=== PATIENT | male | born 1995 | race African-American/Black ===

== ENCOUNTER 2024-05-17 00:58 | Emergency (ER) | payer OTHER ==
[2024-05-17 01:21] VITALS: BP 132/67; PULSE 78; RESP 18; TEMP 98; BMI 22.8
[2024-05-17] MEDS ORDERED: ACETAMINOPHEN 325 MG TABLET (FP) ONE (02:25)
[2024-05-17] MEDS: ACETAMINOPHEN 325 MG TABLET (FP) PO ONE (02:30)
[2024-05-17 02:37] LABS: BASO % 0.7 % (0-2.0); EOS % 1.5 % (0-4.5); HEMATOCRIT 38.6 % (35.4-49); HEMOGLOBIN 12.7 GM/dL (11.7-16.9); LYMPH % 46.8 % (8-40); MCH 31.4 pg (25.7-33.7); MCHC 32.9 g/dl (32.0-35.9); MEAN CELL VOLUME 95.4 fl (80-96); MONO % 6.8 % (3.8-10.2); NEUT % 44.2 % (42.8-82.8); PLATELET COUNT 221 10^3/uL (134-434); RBC 4.05 M/mm3 (4.00-5.60); RDW 13.5 % (11.9-15.9); WHITE BLOOD COUNT 5.2 K/mm3 (4.0-10.0)
[2024-05-17 03:08] LABS: POTASSIUM 3.9 mmol/L (3.5-5.1)
[2024-05-17 03:10] LABS: ALBUMIN 3.6 g/dl (3.4-5.0); CALCIUM 9.1 mg/dL (8.5-10.1)
[2024-05-17 03:11] LABS: BLOOD UREA NITROGEN 7.4 mg/dL (7-18)
[2024-05-17 03:15] LABS: BILIRUBIN,TOTAL 0.3 mg/dL (0.2-1); TOT PROT 6.7 g/dl (6.4-8.2)
[2024-05-17] MEDS ORDERED: LIDOCAINE HCL 1%, 10 MG/ML (20ML VIAL) ONE (04:14)
[2024-05-17] MEDS: LIDOCAINE HCL 1%, 10 MG/ML (50 mL VIAL) SQ ONE (05:26)
[2024-05-17 06:13] LABS: PH,URINE 6.5 (5.0-8.0); URINE APPEARANCE CLEAR; URINE BILIRUBIN NEGATIVE (NEGATIVE); URINE COLOR YELLOW; URINE GLUCOSE (UA) NEGATIVE (NEGATIVE); URINE KETONE TRACE (NEGATIVE); URINE LEUK ESTERASE NEGATIVE (NEGATIVE); URINE NITRITE NEGATIVE (NEGATIVE); URINE PROTEIN NEGATIVE (NEGATIVE)
[2024-05-17 06:19] LABS: COCAINE, UR NEGATIVE (NEGATIVE); URINE AMPHETAMINES NEGATIVE (NEGATIVE); URINE BARBITURATES NEGATIVE (NEGATIVE); URINE BENZODIAZEPINES NEGATIVE (NEGATIVE)
[2024-05-17 06:20] LABS: METHADONE, UR NEGATIVE (NEGATIVE); OPIATES, URI NEGATIVE (NEGATIVE); PHENCYCLIDINE,URINE NEGATIVE (NEGATIVE)
[2024-05-17] MEDS ORDERED: DIPHTH,PERTUSS(ACELL),TET 0.5 ML DISP.SYRIN IM ONE (06:21)
[2024-05-17] MEDS: DIPHTH,PERTUSS(ACELL),TET 0.5 ML DISP.SYRIN IM ONE (06:23)
== END 2024-05-17 06:34 | disposition home or self-care (01) ==
LOC: JER 00:58
PROC: 0CQ0XZZ Repair Upper Lip, External Approach (ICD-10-PCS; principal; 2024-05-17)
PROC: 3E0234Z Introduction of Serum, Toxoid and Vaccine into Muscle, Percutaneous Approach (ICD-10-PCS; 2024-05-17)
DX: S01.511A Laceration without foreign body of lip, initial encounter (principal); S00.01XA Abrasion of scalp, initial encounter; X58.XXXA Exposure to other specified factors, initial encounter; Z23 Encounter for immunization
CPT/HCPCS: 12011-25; 36415; 70450-TC; 72125-TC; 80053; 80307; 81003; 85025; 90471; 90715; 99284-25